=== PATIENT | female | born 1990 | race Caucasian/White ===

== ENCOUNTER 2016-08-13 06:09 | Emergency (ER) | payer OTHER ==
--- NOTE | 2016-08-13 06:29 | PDOC ---
History of Present Illness - General History Source: Patient Exam Limitations: No Limitations <Stone Fallon - Last Filed: 08/13/16 06:25> - General History Source: Patient Exam Limitations: No Limitations - History of Present Illness Initial Comments: 08/13/16 06:30 The patient is a 26 year old female with significant past medical history of headaches who presents to the ED with diffuse abdominal pain and persistent nausea and vomiting few hours prior to arrival. Patients son was recently seen in the ER last night for abdominal pain, nausea, vomiting, and diarrhea, where he was diagnosed with mesenteric adenitis that was revealed by CT. She states shortly after leaving the ER, she started to developed diffuse abdominal pain with numerous episodes of nonbloody vomiting. Patient denies diarrhea. The patient denies fever, chills, diaphoresis, cough, SOB, chest pain, and palpitations. Allergies: NKDA Social History: No alcohol, tobacco, or drug use reported. Past Surgical History: None reported PCP: Dr. Lizzy Berrios <Ella Landis - Last Filed: 08/13/16 06:31> - General Chief Complaint: Nausea/Vomiting Stated Complaint: NAUSEA/VOMITING Time Seen by Provider: 08/13/16 06:20 Past History - Past Medical History Other medical history: Pituitary gland edema? Headaches sometimes - Reproductive History (#): 1 Para: 1 - Immunization History Td Vaccination: Yes Immunization Up to Date: Yes - Psycho/Social/Smoking Cessation Hx Anxiety: No Suicidal Ideation: No Smoking Status: No Smoking History: Never smoked Years of Tobacco Use: 0 Number of Cigarettes Smoked Daily: 0 Cigars Per Day: 0 Information on smoking cessation initiated: No Hx Alcohol Use: No Drug/Substance Use Hx: No Substance Use Type: None Hx Substance Use Treatment: No <Stone Fallon - Last Filed: 08/13/16 06:25> <Ella Landis - Last Filed: 08/13/16 06:31> - Past Medical History Allergies/Adverse Reactions: Allergies Allergy/AdvReac Type Severity Reaction Status Date / Time Penicillins Allergy Verified 08/13/16 06:20 Home Medications: Ambulatory Orders NK [No Known Home Medication] 08/13/16 Review of Systems - Review of Systems Able to Perform ROS?: Yes Comments:: 08/13/16 06:30 +diffuse abdominal pain, nausea, vomiting Absent: fever, chills, diaphoresis, cough, SOB, chest pain, and diarrhea <Ella Landis - Last Filed: 08/13/16 06:31> *Physical Exam - Vital Signs Last Vital Signs Temp Pulse Resp BP Pulse Ox 98.4 F 67 19 95/53 97 08/13/16 06:17 08/13/16 06:17 08/13/16 06:17 08/13/16 06:17 08/13/16 06:17 - Physical Exam General Appearance: Yes: Nourished, Appropriately Dressed. No: Apparent Distress HEENT: positive: Normal ENT Inspection Neck: positive: Supple Respiratory/Chest: positive: Lungs Clear, Normal Breath Sounds. negative: Respiratory Distress Cardiovascular: positive: Regular Rhythm, Regular Rate Gastrointestinal/Abdominal: positive: Normal Bowel Sounds, Soft. negative: Tender Musculoskeletal: negative: CVA Tenderness Integumentary: positive: Normal Color Neurologic: positive: Fully Oriented, Alert, Normal Mood/Affect, Normal Response , Motor Strength 5/5 <Stone Fallon - Last Filed: 08/13/16 06:25> - Vital Signs Last Vital Signs Temp Pulse Resp BP Pulse Ox 98.4 F 67 19 95/53 97 08/13/16 06:17 08/13/16 06:17 08/13/16 06:17 08/13/16 06:17 08/13/16 06:17 <Ella Landis - Last Filed: 08/13/16 06:31> Progress Note - Progress Note Progress Note: LIKELY VIRAL SYNDROME IVF/ZOFRAN/PEPCID <Stone Fallon - Last Filed: 08/13/16 06:25> *DC/Admit/Observation/Transfer <Stone Fallon - Last Filed: 08/13/16 06:25> - Attestations Scribe Attestion: 08/13/16 06:30 Documentation prepared by Ella Landis, acting as medical lead for Stone Fallon MD <Ella Landis - Last Filed: 08/13/16 06:31> Diagnosis at time of Disposition: Gastroenteritis - Referrals Referrals: Ashleigh Berrios [Primary Care Provider] -
[2016-08-13] MEDS ORDERED: SODIUM CHLORIDE 1,000 ML IV STA (06:30)
[2016-08-13] MEDS ORDERED: ONDANSETRON 4 MG/2 ML VIAL IVPUSH ONE (06:30)
[2016-08-13] MEDS ORDERED: FAMOTIDINE 20 MG/50 ML IVPB 50 ML IVPB ONE ×2 (06:30→06:41)
[2016-08-13] MEDS ORDERED: ONDANSETRON 4 MG/2 ML VIAL ONE (06:40)
[2016-08-13 06:42] VITALS: TEMP 98.4; BMI 25.8
--- NOTE | 2016-08-13 07:11 | PDOC ---
[id number] 97 08/13/16 06:17 08/13/16 06:17 08/13/16 06:17 08/13/16 06:17 08/13/16 06:17 ED Treatment Course - Medications Given in the ED: ED Medications Discontinued Medications Generic Name Dose Route Start Last Admin Trade Name Daniel PRN Reason Stop Dose Admin Famotidine/Sodium Chloride 50 mls @ 100 mls/hr 08/13/16 06:30 08/13/16 06:48 Pepcid 20 Mg Premixed Ivpb - IVPB 08/13/16 06:59 100 mls/hr ONCE ONE Administration Ondansetron HCl 4 mg 08/13/16 06:30 08/13/16 06:49 Zofran Injection IVPUSH 08/13/16 06:31 4 mg ONCE ONE Administration Medical Decision Making - Medical Decision Making 08/13/16 08:06 Pt reports improvement in symptoms, requesting DC home. Stable for DC home. *DC/Admit/Observation/Transfer Diagnosis at time of Disposition: Nausea, vomiting and diarrhea - Discharge Dispostion Disposition: HOME Condition at time of disposition: Stable Admit: No - Referrals Referrals: Ashleigh Berrios [Primary Care Provider] - - Patient Instructions Printed Discharge Instructions: DI for Diarrhea and Traveler's Diarrhea -- Adult, DI for Vomiting -- Adult - Post Discharge Activity
[2016-08-13 08:11] VITALS: BP 106/54; PULSE 70
== END 2016-08-13 08:11 | disposition home or self-care (01) ==
LOC: JER 06:09
PROC: 3E033GC Introduction of Other Therapeutic Substance into Peripheral Vein, Percutaneous Approach (ICD-10-PCS; principal; 2016-08-13)
DX: K52.9 Noninfective gastroenteritis and colitis, unspecified (principal)
CPT/HCPCS: 96365; 96375; 99283-25

== ENCOUNTER 2017-07-03 18:33 | Emergency (ER) | payer OTHER ==
--- NOTE | 2017-07-03 18:50 | PDOC ---
History of Present Illness - General History Source: Patient Exam Limitations: No Limitations - History of Present Illness Initial Comments: 07/03/17 18:57 The patient is a 27 year old female with no significant past medical history who presents to the ED complaining of approximately 2 days of lower back pain, worse today. She states she first noticed her midline lower back pain two days ago. Today, she was shoveling snow when she felt a "crack" in her back, followed by significant worsening of her pain. She now complains she cannot move secondary to pain. No numbness, tingling, or focal weakness. No groin or genital pain. No bladder or bowel incontinence. No hematuria or dysuria. <Ladonna Jimenez - Last Filed: 07/03/17 19:16> <Amina West - Last Filed: 07/03/17 22:28> - General Stated Complaint: LOWER BACK PAIN Time Seen by Provider: 07/03/17 18:39 Past History <Ladonna Jimenez - Last Filed: 07/03/17 19:16> - Reproductive History (#): 1 Para: 1 - Immunization History Td Vaccination: Yes Immunization Up to Date: Yes - Suicide/Smoking/Psychosocial Hx Smoking Status: No Smoking History: Never smoked Years of Tobacco Use: 0 Number of Cigarettes Smoked Daily: 0 Cigars Per Day: 0 Hx Alcohol Use: No Drug/Substance Use Hx: No Substance Use Type: None Hx Substance Use Treatment: No <Amina West - Last Filed: 07/03/17 22:28> - Past Medical History Allergies/Adverse Reactions: Allergies Allergy/AdvReac Type Severity Reaction Status Date / Time Penicillins Allergy Verified 08/13/16 06:20 Home Medications: Ambulatory Orders Cyclobenzaprine HCl [Flexeril 10 mg] 10 mg PO BID PRN #10 tablet 07/03/17 Ibuprofen [Motrin -] 600 mg PO TID PRN #21 tablet 07/03/17 Omeprazole 20 mg PO DAILY 07/03/17 Review of Systems - Review of Systems Able to Perform ROS?: Yes Comments:: 07/03/17 18:59 GENERAL/CONSTITUTIONAL: No fever or chills. No weakness. HEAD, EYES, EARS, NOSE AND THROAT: No change in vision. No ear pain or discharge. No sore throat. GASTROINTESTINAL: No nausea, vomiting, diarrhea or constipation. GENITOURINARY: No dysuria, frequency, or change in urination. CARDIOVASCULAR: No chest pain or shortness of breath. RESPIRATORY: No cough, wheezing, or hemoptysis. MUSCULOSKELETAL: +Lower back pain. No neck pain. No other joint or muscle swelling or pain. SKIN: No rash NEUROLOGIC: No headache, vertigo, loss of consciousness, or change in strength/ sensation. ENDOCRINE: No increased thirst. No abnormal weight change. HEMATOLOGIC/LYMPHATIC: No anemia, easy bleeding, or history of blood clots. ALLERGIC/IMMUNOLOGIC: No hives or skin allergy. <Ladonna Jimenez - Last Filed: 07/03/17 19:16> *Physical Exam - Physical Exam Comments: 07/03/17 19:00 Constitutional: Awake, alert, oriented. No acute distress. Head: Normocephalic. Atraumatic Eyes: PERRL. EOMI. Conjunctivae are not pale. ENT: Mucous membranes are moist and intact. Posterior pharynx without exudates or erythema. Uvula midline. Neck: Supple. Full ROM. No lymphadenopathy. Cardiovascular: Regular rate. Regular rhythm. S1, S2 regular. Distal pulses are 2+ and symmetric. Pulmonary/Chest: No evidence of respiratory distress. Clear to auscultation bilaterally No wheezing, rales or rhonchi. Abdominal: Soft and non-distended. There is no tenderness. No rebound, guarding or rigidity. No organomegaly. No palpable masses. Good bowel sounds. Back: Pinpoint tenderness to the SI joint and lumbar spine and lumbar paraspinal tenderness to palpation. No stepoff. No CVA tenderness. Musculoskeletal: No edema. No cyanosis. No clubbing. Full range of motion in all extremities. No calf tenderness. Radial/pedal pulses are intact and 2+ bilaterally Skin: Skin is warm and dry. No petechiae. No purpura. Neurological: Alert and oriented to person, place, and time. Cranial nerves II -XII are grossly intact. Normal speech. Strength is grossly symmetric. No sensory deficits. Sensation intact throughout lower extremities. Psychiatric: Good eye contact. Normal interaction, affect and behavior. <Ladonna Jimenez - Last Filed: 07/03/17 19:16> Medical Decision Making - Medical Decision Making 07/03/17 19:12 a/p: 27yo female with acute onset of LBP -no signs of caude equina -bony tenderness to L SI joint and midline lumbar spine -paraspinal ttp L lumbar region -sensation and muscle strength intact distal -will monitor and reassess -will check UA once better in pain control 07/03/17 21:15 pt still c/o pain given percocet able to move legs and sitting with them bent 07/03/17 22:24 pt feeling much better. able to ambulate in the ED requesting work note will d/c home with flexeril and motrin for pain [facility] for d/c to home no signs of caude equina neuro intact <Amina West - Last Filed: 07/03/17 22:28> *DC/Admit/Observation/Transfer - Attestations Scribe Attestion: 07/03/17 19:02 Documentation prepared by Ladonna Jimenez, acting as medical voucher clerk for Amina West DO. <Ladonna Jimenez - Last Filed: 07/03/17 19:16> - Discharge Dispostion Admit: No - Attestations Physician Attestion: 07/03/17 22:28 I, Dr. Amina West DO, attest that this document has been prepared under my direction and personally reviewed by me in its entirety. I further attest, that it accurately reflects all work, treatment, procedures and medical decision -making performed by me. <Amina West - Last Filed: 07/03/17 22:28> Diagnosis at time of Disposition: Low back pain - Discharge Dispostion Disposition: HOME Condition at time of disposition: Stable - Prescriptions Prescriptions: Cyclobenzaprine HCl [Flexeril 10 mg] 10 mg PO BID PRN #10 tablet PRN Reason: Back Pain Ibuprofen [Motrin -] 600 mg PO TID PRN #21 tablet PRN Reason: Back Pain - Referrals Referrals: Abraham Stephenson [Primary Care Provider] - Maurice Avalos MD [Staff Physician] - - Patient Instructions Printed Discharge Instructions: DI for Low Back Pain Additional Instructions: Please take all meds as prescribed. Please follow up with your PMD next week. Please return to the ED with any further complaints. - Post Discharge Activity Forms/Work/School Notes: Back to Work
[2017-07-03] MEDS ORDERED: diazePAM 5 MG TABLET PO ONE (18:51)
[2017-07-03] MEDS ORDERED: KETOROLAC TROMETHAMINE 60 MG/2 ML VIAL IM ONE (18:51)
[2017-07-03 19:29] VITALS: BP 110/78; PULSE 98; TEMP 98.5; BMI 27.4
[2017-07-03] MEDS ORDERED: KETOROLAC TROMETHAMINE 60 MG/2 ML VIAL ONE (19:30)
[2017-07-03] MEDS ORDERED: diazePAM 5 MG TABLET ONE (19:31)
== END 2017-07-03 22:47 | disposition home or self-care (01) ==
LOC: JER 18:33
PROC: 3E0233Z Introduction of Anti-inflammatory into Muscle, Percutaneous Approach (ICD-10-PCS; principal; 2017-07-03)
DX: M54.5 Low back pain (principal); X50.0XXA Overexertion from strenuous movement or load, initial encounter; Y93.H1 Activity, digging, shoveling and raking; Y92.89 Other specified places as the place of occurrence of the external cause; Y99.8 Other external cause status
CPT/HCPCS: 36415; 72100-TC; 84703; 99284-25